=== PATIENT | male | born 1980 | race Native Hawaiian/Other Pacific Islander ===

== ENCOUNTER 2024-03-14 19:53 | Emergency (ER) | payer SELFPAY ==
[2024-03-14 19:58] VITALS: BP 150/97; PULSE 87; RESP 14; TEMP 36.6; O2SAT 100
--- NOTE | 2024-03-14 20:32 | ED_ITS ---
HPI - Skin/Abscess/Foreign Bdy General: Chief complaint: Skin/Abscess/Foreign Body Stated complaint: injury on right side Time Seen by Provider: 03/14/24 19:57 History of Present Illness: 43-year-old male patient comes in with a tender rash to the right rib area. Patient appears nontoxic. Patient appears in no acute distress. Review of Systems General: Reports: 10 or more systems reviewed and unremarkable except in HPI and below Physical Exam Const: COMMON NORMALS: alert HENMT: COMMON NORMALS: normocephalic HEAD & SCALP: normocephalic Neck/C-Spine: COMMON NORMALS: full ROM Resp: COMMON NORMALS: normal respiratory effort Cardio: COMMON NORMALS: regular rate RATE: regular rate GI: COMMON NORMALS: non-tender Back/Pelvis: COMMON NORMALS: thoracic and lumbar spine normal to inspection Extremity: COMMON NORMALS: full ROM Neuro: SENSORIUM/ORIENTATION: Yes alert Skin: NARRATIVE SKIN EXAM: Vesicular eruption right ribs Course Vital Signs: Vital signs: Vital Signs Temperature 98 F 03/14/24 19:58 Pulse Rate 87 03/14/24 19:58 Respiratory Rate 14 03/14/24 19:58 Blood Pressure 150/97 03/14/24 19:58 Pulse Oximetry 100 03/14/24 19:58 MDM - Skin/Abscess/Foreign Bdy Medicial Decision Making 43-year-old male patient comes in today with tender rash to the right ribs. On exam patient has some vesicular lesions noted to the right rib area. Lesions are linear in pattern extending from the back around to the anterior chest. Differential diagnosis and contact dermatitis, shingles, cellulitis, folliculitis. Eruption appears to be herpes zoster. Reviewed exam with patient. Written Bulgarian instructions given to patient. Recommendations for further treatment and follow-up. No radiology studies performed this visit Discharge Plan Discharge Patient Disposition: Home Clinical Impression: Shingles Qualifiers: Herpes zoster complications: without complications Qualified Code(s): B02.9 - Zoster without complications Condition: Stable Prescriptions: New valacyclovir 1 gram tablet 1,000 mg PO TID 7 Days Qty: 21 0RF gabapentin 300 mg capsule 300 mg PO TID Qty: 21 0RF Discharge Orders: Discharge ED (Routine); Ordered 03/14/24 Ordered By: Melchor Mosher Patient Instructions: Shingles (ED) Activity Restrictions/Additional Instructions: Drink plenty water and fluids. Use acetaminophen and ibuprofen for pain. Follow-up with primary care. Print Language: Bulgarian Coding Level of Care Code ED [employer] Technician for Herminia Wilson
[2024-03-14 20:56] VITALS: BP 130/72; PULSE 81; RESP 16; TEMP 36.6; O2SAT 100
== END 2024-03-14 20:59 | disposition home or self-care (01) ==
PROVIDERS: Emergency Provider Nurse Practitioner Family
DX: B02.9 Zoster without complications (principal)
CPT/HCPCS: 99283